=== PATIENT | female | born 1975 | race Caucasian/White ===

== ENCOUNTER 2018-11-21 14:19 | Emergency (ER) | payer MEDICAID ==
[2018-11-21 14:26] VITALS: BP 126/88
--- NOTE | 2018-11-21 15:22 | EDPHY ---
H & P Smoking Status: Never smoked Time Seen by Provider: 11/21/18 14:58 HPI/ROS: CHIEF COMPLAINT: "I have a pervasive smell" HISTORY OF PRESENT ILLNESS: 43-year-old female via private vehicle complaining of a "pervasive smell" since February 2018. She has been seen by her primary care providers and expresses displeasure with the lack of answers as to her continued "pervasive smell". She describes that as a combination of burning flesh and cigarettes. Patient comes to the ER today and due to 2 days of new erythema and vesicles on the right medial aspect of her nostril. Patient also describes several months of constellation of symptoms including, but not limited to, fatigue, emotional lability, decreased appetite, insomnia. Denies: Chest pain, dyspnea, back pain, diplopia, gait instability, slurred speech, headache, nausea, vomiting, fever, chills, myalgias. PRIMARY CARE PROVIDER: Lucio REVIEW OF SYSTEMS: 10 systems reviewed and negative with the exception of the elements mentioned in the history of present illness PAST MEDICAL & SURGICAL HISTORY: No pertinent medical or surgical history SOCIAL HISTORY: Nonsmoker PHYSICAL EXAM (Prior to examination, patient consented to physical exam, hands were washed and my usual and customary physical exam procedures followed) 1) GENERAL: Well-developed, well-nourished, alert and oriented. Appears to be in no acute distress. 2) HEAD: Normocephalic, atraumatic 3) HEENT: Pupils equal, round, reactive to light bilaterally. Sclera anicteric. Nasopharynx: Left medial aspect of nostril at Kiesselbach's plexus erythematous tender vesicles. Oropharynx, clear, no lesions. Moist Mucous membranes. No tonsillar enlargement or exudate. Ears bilaterally with normal tympanic membranes. No Skin lesions to face. Negative Lozano sign. 4) NECK: Full range of motion, no meningeal signs. 5) LUNGS: Clear auscultation bilaterally, no wheezes, no rhonchi, no retractions. 6) HEART: Regular rate and rhythm, no murmur, no heave, no gallop. 7) ABDOMEN: No guarding, no rebound, no focal tenderness, negative McBurney's, negative Cordova's, negative Rovsing's, negative peritoneal sign, 8) MUSCULOSKELETAL: Moving all extremities, no focal areas of tenderness, no obvious trauma. No peripheral edema or discoloration. 9) BACK: No CVA tenderness, no midline vertebral tenderness, no fluctuance, no step-off, no obvious trauma, no visual or palpable abnormality. 10) SKIN: No rash, no petechiae. 11) Psychiatric: Patient is oriented X 3, there is no agitation. 12) NEURO: Awake, alert, and oriented to person, place and time. Answers questions appropriately. There were no obvious focal neurologic abnormalities. No cerebellar dysfunction. Cranial nerves 2 through to 12 intact. Normal steady gait. Upper and lower extremities bilaterally with strength 5 / 5, reflexes 2+. DIFFERENTIAL DIAGNOSIS: In no particular order include but limited to nasal herpes, herpes encephalitis, herpes meningitis, malignancy (Eber Kebede) Constitutional: Initial Vital Signs Temperature (C) 36.7 C 11/21/18 14:22 Heart Rate 72 11/21/18 14:22 Respiratory Rate 18 11/21/18 14:22 Blood Pressure 126/88 H 11/21/18 14:22 O2 Sat (%) 97 11/21/18 14:22 O2 Delivery Mode Room Air Allergies/Adverse Reactions: prednisone Allergy (Verified 11/21/18 14:22) Home Medications: Medication Instructions Recorded Acyclovir 400 mg PO TID 7 Days tablet 11/21/18 MDM/Departure - [facility] ED Course/Re-evaluation: 3:20 p.m.: Patient presents with constellation of symptoms. On exam today the only abnormal examination finding are erythematous, tender, vesicular lesions on left Kiesselbach's plexus of the nose consistent with herpes. I have recommended acyclovir. She has a nonfocal neurologic examination. Patient has inquired about diagnostic studies such as MRI, laboratory studies. She notes that she has performed extensive online research of medical journals. She specifically inquired about herpes meningitis or encephalitis. She notes no headache has a nonfocal neurologic examination no altered mentation. At this time, I do not identify an emergent condition requiring emergent diagnostic studies such as MRI. Nonetheless I did empathize with her ongoing symptoms and recommended continued follow-up with primary care also recommended follow-up with otolaryngology and provided this referral information. My usual and customary discharge precautions instructions have been provided. ( Eber Kebede) I did not see this patient while she was in the emergency department. However her care was discussed with the PA while the patient was in the department. I agree with treatment plan and management (Freddy Martinez) - Depart Disposition: Home, Routine, Self-Care Clinical Impression: herpes nasal Condition: Good Instructions: Oral Herpes Simplex Virus Infections (ED) Prescriptions: Acyclovir 400 mg PO TID 7 Days tablet Referrals: Pedro Luis Nielsen MD [Medical Doctor] - 5-7 days, call for appt.
== END 2018-11-21 15:38 | disposition home or self-care (01) ==
DX: B00.9 Herpesviral infection, unspecified (principal)